=== PATIENT | male | born 1965 | race African-American/Black ===

== ENCOUNTER 2022-03-04 12:02 | Emergency (ER) | payer OTHER ==
[~2022-03-04] VITALS: Ht 195.6 cm; Wt 95.3 kg
[2022-03-04] MEDS ORDERED: TDAP DIPH,PERTUSS,TET VAC/PF 0.5 ML DISP.SYRIN IM ONE ×2 (12:28→12:30)
[2022-03-04] MEDS ORDERED: NEOMY/BACITRA/POLYMYXIN B OINT UD PACKET TP ONE ×2 (12:28→12:30)
--- NOTE | 2022-03-04 12:45 | NUR ---
Dr. Rader at bedside for wound treatment.
--- NOTE | 2022-03-04 12:58 | NUR ---
Patient discharged to home in stable condition. Written and verbal after care instructions given. Patient verbalizes understanding of instructions. Wound care explained. Stressed follow up or return to ER for worsening s/s.
[2022-03-04 13:00] VITALS: BP 149/86
== END 2022-03-04 13:01 | disposition home or self-care (01) ==
LOC: ER 12:13
DX: S61.411A Laceration without foreign body of right hand, initial encounter (principal); W25.XXXA Contact with sharp glass, initial encounter; Y92.89 Other specified places as the place of occurrence of the external cause; Z88.0 Allergy status to penicillin
CPT/HCPCS: 90715; A4663

== ENCOUNTER 2023-08-24 17:42 | Emergency (ER) | payer OTHER ==
[~2023-08-24] VITALS: Ht 195.6 cm; Wt 93.0 kg
[2023-08-24 19:38] VITALS: BP 148/81; O2SAT 99
== END 2023-08-24 19:38 | disposition home or self-care (01) ==
LOC: ER 17:43
DX: S01.81XA Laceration without foreign body of other part of head, initial encounter (principal); S06.0X0A Concussion without loss of consciousness, initial encounter; S13.4XXA Sprain of ligaments of cervical spine, initial encounter; Z88.0 Allergy status to penicillin; W26.8XXA Contact with other sharp object(s), not elsewhere classified, initial encounter; Y93.89 Activity, other specified; Y92.89 Other specified places as the place of occurrence of the external cause; Y99.8 Other external cause status
CPT/HCPCS: A4606; A4663